=== PATIENT | female | born 1965 | race Hispanic/Latino ===

== ENCOUNTER → 2019-05-15 | Outpatient (CLI) | payer BC ==
[~2019-05-15] MED LIST: NKM; Z.0.CIPRO500 MG PO
--- NOTE | 2019-05-15 12:36 | Diagnostic Imaging Report ---
Right elbow, 3 views Clinical indications: Right elbow pain Comparison: None Findings: 3 views of the right elbow were obtained. There is no radiographic evidence of acute fracture or dislocation. The bone mineralization is normal. Small degenerative osteophytes are present. There is no elbow effusion. Pression: Mild degenerative changes of the right elbow without radiographic evidence of acute fracture or dislocation. Signed by: Brian Roman MD on 05/15/2019 12:32 PM
== END ==
LOC: RAD 11:37
PROVIDERS: ATTEND Family Medicine
DX: M25.521 Pain in right elbow (principal)

== ENCOUNTER → 2021-04-09 | Outpatient (CLI) | payer BC | LOC: RAD 10:22 | PROVIDERS: ATTEND Family Medicine | DX: M25.562 Pain in left knee (principal) ==